=== PATIENT | female | born 1965 | race Two or more races ===

== ENCOUNTER 2021-08-14 06:50 | Day surgery (SDC) | payer OTHER ==
[~2021-08-14 06:50] MED LIST: ATORVASTATIN CA20 MG PO; CATAFLAN PO; CELEXA20 MG PO; CLONAZEPAM0.5 MG PO; FLEXERIL PO; [UNRECOGNIZED DRUG - OTHER]
[2021-08-14] MEDS ORDERED: PERCOCET 5-3251 EACH PO (10:14)
[2021-08-14] MEDS ORDERED: NEURONTIN300 MG PO (10:14)
[2021-08-14] MEDS ORDERED: KETO10TA2 PO (10:14)
[2021-08-14] MEDS ORDERED: DERMOPLAST PAIN78 GM TOP (10:15)
== END 2021-08-14 15:40 | disposition home or self-care (01) ==
LOC: CIR.AMB 06:50
PROVIDERS: ATTEND Surgery
DX: A63.0 Anogenital (venereal) warts (principal); N81.6 Rectocele; N84.2 Polyp of vagina; K62.0 Anal polyp